=== PATIENT | male | born 1965 | race African-American/Black ===

== ENCOUNTER 2024-07-21 12:35 | Outpatient (REF) | payer OTHER, SELFPAY ==
[2024-07-21 14:13] LABS: MANUAL DIFF FLAG NO
[2024-07-21 14:28] LABS: Estimated Average Glucose 151 mg/dL; Hemoglobin A1C 196.6872 umol/L; Hemoglobin A1c % 6.9 % (<6.0); Total Hemoglobin (HGBA1C) 3764.7137 umol/L
[2024-07-21 14:31] LABS: Basophils Percent Auto 0.7 % (0-2); Eosinophils Absolute Auto 0.1 X10*3/uL (0.0-0.4); Eosinophils Percent Auto 2.1 % (0-4); Hematocrit 42.9 % (42.0-52.0); Hemoglobin 14.1 g/dl (14.0-18.0); Imm Gran Abs Auto 0.01 X10*3/uL (0.00-0.03); Imm Gran Pct Auto 0.2 % (0.0-0.4); Lymphocytes Absolute Auto 1.7 X10*3/uL (1.2-4.9); Lymphocytes Percent Auto 30.1 % (20-40); Mean Corpuscular HGB Conc 32.9 g/dl (31.0-36.0); Mean Corpuscular Hemoglobin 30.7 pg (27.0-33.0); Mean Corpuscular Volume 93.5 fL (80.0-98.0); Mean Platelet Volume 10.8 fL (9.4-12.4); Monocytes Absolute Auto 0.6 X10*3/uL (0.1-1.2); Monocytes Percent Auto 9.9 % (2-11); Neutrophils Absolute Auto 3.3 x10*3/uL (2.0-8.3); Platelet Count 228 X10*3/uL (160-400); Red Blood Count 4.59 X10*6/uL (4.60-5.80); Red Cell Distribution Width 16.8 % (11.0-16.0); White Blood Count 5.8 X10*3/uL (4.8-10.8)
[2024-07-21 14:48] LABS: Cholesterol 87 mg/dL (<200); HDL Cholesterol 29 mg/dL (>40); LDL Cholesterol Calculated 41 mg/dL (<100); Triglycerides 87 mg/dL (<150)
[2024-07-21 15:02] LABS: Thyroid Stimulating Hormone 3.43 uIU/mL (0.32-4.0)
== END 2024-07-21 12:36 | disposition home or self-care (01) ==
LOC: HO.WFDLDS 12:35
PROVIDERS: Visit Provider Nurse Practitioner Family
DX: F41.1 Generalized anxiety disorder (principal); Z13.1 Encounter for screening for diabetes mellitus
CPT/HCPCS: 36415; 80061; 83036; 84443; 85025

== ENCOUNTER 2024-08-01 14:30 | Inpatient (IN) | payer OTHER, SELFPAY ==
--- NOTE | ~2024-08-01 | XR_ITS ---
EXAMINATION: XR CHEST CLINICAL INFORMATION: SOB COMPARISON: None available. TECHNIQUE: 2 views of the chest were obtained. FINDINGS: The cardiac silhouette is enlarged. There is mild diffuse bronchial wall thickening. There are no areas of consolidation. There are no pleural effusions or pneumothoraces. The bones and soft tissues are unremarkable for the patient's age. XR/XR chest 2V IMPRESSION: Bronchial wall thickening may be infectious and/or inflammatory in etiology. Cardiomegaly. Electronically signed by: Corina Sam MD 08/01/2024 04:21 PM JAYSHREE WILLIS
--- NOTE | ~2024-08-01 | CT_ITS ---
EXAMINATION: CT ABDOMEN AND PELVIS WITH CONTRAST CLINICAL INFORMATION: Elevated bilirubin. Abdominal distention. Left-sided pain and tenderness. Question colitis. COMPARISON: None available. TECHNIQUE: Multidetector volumetric images were obtained from the superior aspect of the liver through the pubic symphysis following administration 85 mL of Omnipaque 350 intravenous contrast. Sagittal and coronal reformatted images were obtained on the technologist's workstation. Oral Contrast: No. This CT examination was performed using dose optimization techniques as appropriate, variously including the following: *Automated exposure control. *Adjustment of mA and/or kV according to patient size (this includes techniques or standardized protocols for targeted exams where dose is matched to indication/reason for exam; i.e. extremities or head). *Use of iterative reconstruction technique. DLP: 752 mGy-cm FINDINGS: LUNG BASES: Cardiomegaly and small pericardial effusion. LIVER, GALLBLADDER, AND BILIARY TREE: The liver is normal in size, shape, and attenuation. No focal hepatic lesion or biliary ductal dilatation is present. The gallbladder is unremarkable with no evidence of radiopaque gallstones, gallbladder wall thickening, or obvious pericholecystic inflammatory changes. PANCREAS: Unremarkable. SPLEEN: Atrophic. No parenchymal lesion. ADRENAL GLANDS: Unremarkable. KIDNEYS AND URETERS: The kidneys are normal in size, shape, and attenuation. No hydronephrosis, hydroureter, or calculi seen. No perinephric stranding. BLADDER: Unremarkable. GASTROINTESTINAL TRACT: No small or large bowel obstruction. No bowel wall thickening or inflammatory change. Unremarkable appendix. PERITONEAL CAVITY: Trace pelvic free fluid. No organized fluid collection or abscess formation. No intra-abdominal free air. ABDOMINAL WALL: No significant abdominal wall hernia. LYMPH NODES: No lymphadenopathy. VASCULAR: Unremarkable. PELVIC VISCERA: The prostate and seminal vesicles are unremarkable. OSSEOUS STRUCTURES: Unremarkable. CT/CT abdomen pelvis w IV con IMPRESSION: 1. No small or large bowel obstruction. No bowel wall thickening or inflammatory change. Unremarkable appendix. 2. Trace pelvic free fluid. No organized fluid collection or abscess formation. 3. Cardiomegaly and small pericardial effusion. Fleischner guidelines were followed. Electronically signed by: Augustin Velez MD 08/01/2024 08:43 PM [facility] [place]
--- NOTE | ~2024-08-01 | CT_ITS ---
EXAMINATION: CT CHEST ANGIOGRAPHY WITH IV CONTRAST CLINICAL INFORMATION: , hypoxia COMPARISON: None TECHNIQUE: Volumetric imaging was performed through the chest. Reformatted coronal and sagittal imaging was performed. 3-D MIP images performed at a dedicated separate workstation. This CT examination was performed using dose optimization techniques as appropriate, variously including the following: *Automated exposure control *Adjustment of mA and/or kV according to patient size (this includes techniques or standardized protocols for targeted exams where dose is matched to indication/reason for exam; i.e. extremities or head) *Use of iterative reconstruction technique CONTRAST: 85 ml of Omni 350 injected DLP: 752 FINDINGS: PULMONARY ARTERIES: Large central emboli, there are however nonocclusive small filling defects in tertiary branches of the pulmonary arteries bilaterally upper and lower lobes, suggesting a small emboli could be chronic. , These are peripherally located, Subsegmental pulmonary arteries, no CT evidence of cardiac strain septal bowing. LINES/TUBES: None LUNGS: Lung Parenchyma: Panlobular pulmonary emphysema. Lung Nodules:There are no significant lung nodules. AIRWAYS: Trachea and bronchi are normal. PLEURA: No pleural effusion or pneumothorax. MEDIASTINUM AND TASHA: The visualized thyroid gland is unremarkable. No mediastinal, hilar or axillary lymphadenopathy. There is no mediastinal mass. VESSELS: Ascending aorta normal in size, pulmonary artery on the right is dilated measure up to 3.1 cm, the left pulmonary artery is a 3 cm. this has been described in association with pulmonary hypertension. HEART AND PERICARDIUM: The heart is enlarged. There are no significant coronary calcifications. CHEST WALL, LOWER NECK, SURROUNDING SOFT TISSUES: Normal VISUALIZED ABDOMEN: Unremarkable BONES: The visualized bony thorax is within normal limits. CT/CT angio chest PE protocol IMPRESSION: 1. Positive PE. Although there are no Large central emboli, there are however small nonocclusive filling defects in tertiary branches of the pulmonary arteries bilaterally upper and lower lobes, suggesting a small emboli could be chronic. These are peripherally located, Subsegmental pulmonary arteries, no CT evidence of cardiac strain septal bowing. 2. Cardiomegaly. 3. Pulmonary emphysema. 4. No suspicious lung mass. 5. Dilated pulmonary arteries, this has been described in association with pulmonary hypertension. 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
--- NOTE | ~2024-08-01 | US_ITS ---
EXAMINATION: US TRIPLEX LOWER EXTREMITY, BILATERAL CLINICAL INFORMATION: Swelling hypoxia PTE COMPARISON: None available. TECHNIQUE: Color-flow triplex imaging with spectral analysis and compression Doppler were performed on the bilateral lower extremities. FINDINGS: Respiratory variation, normal compression and augmented flow are noted throughout the bilateral lower extremities. The visualized common femoral vein, superficial femoral vein, profunda femoral vein, popliteal vein and midcalf peroneal and posterior tibial venous segments show no evidence of deep venous thrombosis bilaterally. There is no Luna's cyst. US/US venous duplex LE BI IMPRESSION: No evidence of deep venous thrombosis involving the bilateral lower extremities. Electronically signed by: Wayne Bass MD 08/01/2024 11:02 PM JAYSHREE WILLIS
--- NOTE | 2024-08-01 14:57 | ED.SOB ---
HPI - SOB/Dyspnea General Chief Complaint: Dyspnea Stated Complaint: Diff Breathing Sent by PCP Time Seen by Provider: 08/01/24 17:13 Source: patient, RN notes reviewed and old records reviewed Mode of arrival: ambulatory Limitations: no limitations History of Present Illness ED Provider: Patricia SILVESTRE Narrative: 59-year-old male presents for evaluation of shortness of breath. Patient reports that he has been having shortness of breath with a cough for the last few weeks. He saw his primary doctor about 2 days ago and had his medications refilled which include losartan, torsemide, spironolactone, atorvastatin. He was also given a prescription for azithromycin and prednisone given his cough and shortness of breath especially with exertion The patient reports he quit smoking about 6 months ago He reports every morning he is nauseous and vomits which she believes related to ?mucus. ? He denies any abdominal pain, nausea or vomiting with the exception of the morning vomiting He denies any fevers, chills, recent travel. He does not believe that his legs are swollen today He reports that he was admitted to [facility] over the summer due to leg swelling. He does not believe he was diagnosed with heart failure but he does have an upcoming appointment with a population health coach He denies any chest pain Related Data Allergies Allergy/AdvReac Type Severity Reaction Status Date / Time No Known Allergies Allergy Verified 08/01/24 14:59 Review of Systems Constitutional: Constitutional: Denies body ache(s), Denies chills, Denies fever(s) and Denies headache(s) Eyes: Eyes: Denies blurry vision ENT: Denies vertigo, Denies dizziness and Denies headache(s) Cardiovascular: Cardiovascular: Denies chest pain, Reports dyspnea and Reports dyspnea on exertion Respiratory: Respiratory: Reports cough, Denies pain on inspiration, Denies pain with cough, Reports dyspnea and Reports dyspnea on exertion Gastrointestinal: Gastrointestinal: Denies abdominal pain, Reports nausea and Reports vomiting Musculoskeletal: Musculoskeletal: Denies back pain Integumentary/Breasts: Skin/Breast: Denies rash Neurologic: Denies vertigo, Denies dizziness and Denies headache(s) Psychiatric: Psychiatric: Denies anxiety PMFSH Social History Social History Smoked in Last 30 Days: Yes Use of substances other than those prescribed or required for medical reasons: No Advance Directives: No Advance Directives Information Provided: No Do you have a plan to hurt others: No Plan Physical Exam Vital Signs: Vital Signs: Last Vital Signs Temp 98.3 F 08/01/24 19:20 Pulse 89 08/01/24 19:20 Resp 24 H 08/01/24 19:20 BP 145/106 H 08/01/24 19:20 Pulse Ox 96 08/01/24 19:20 O2 Del Method Room Air 08/01/24 19:20 BMI result Body Mass Index 24.9 Const: General: healthy appearing, comfortable, no acute distress, alert and awake Nutritional Appearance: well nourished Orientation/consciousness: patient oriented x3 HEENT: Head: Yes normocephalic and Yes atraumatic Eyes: Eyelids: Yes eyelids normal Conjunctivae: conjunctivae normal Sclerae: sclerae normal Corneas: corneas normal Pupils: Equal, round and reactive pupils present EOM: EOMs intact bilaterally Neck: Neck: Yes full ROM Resp: Other: Somewhat diminished but otherwise clear to auscultation Effort & Inspection: normal respiratory effort, able to speak in complete sentences and not labored Cardio: Rate: regular rate Rhythm: regular rhythm GI: Other: Abdomen distended, but nontender no guarding Inspection: Yes distended Palpation (GI): Soft to palpation, not firm, nontender, no guarding and not rigid Skin: General skin exam: elasticity normal Neuro: General: patient oriented x3 Cranial nerves: Yes CN's II-XII intact bilaterally, Yes Equal, round and reactive pupils present and Yes Bilaterally intact EOM present Cognition (Neuro): normal cognition Course Course Course Narrative: This is an RME: Additional HPI, ROS, PE not included below will be deferred to primary provider. RME assessment and note performed by: Allison Zavala PA-C This is a [id number]-male who presents to the ER with complaints of shortness of breath x 1 week. Pt states that over the last week . Reports that he was told that my left ventricle was not pumping right . He is unsure what his medical history is. He just started on azithromycin. He is also on prednisone. He was a former smoker, quit 6 months ago. Plan: Labs, XR, viral swabs, further ER eval needed >received critical lactic of 2.9, advised charge nurse to bring pt back [facility] Reevaluation(s) Reevaluation #1: Patient's CT scan shows nonocclusive pulmonary embolism, no evidence of heart strain, the patient is still tachypneic, his tachycardia has improved. His oxygen saturation is about 90-92% at rest. I ordered a dose of Lovenox and will discuss with the hospitalist for admission Time: 21:10 Medications Administered Discontinued Medications Generic Name Dose Route Start Last Admin Trade Name Freq PRN Reason Stop Dose Admin Iohexol 100 ml 08/01/24 18:56 08/01/24 18:57 Iohexol 350 Mg/Ml 100 Ml Infus..Btl IV 08/01/24 18:57 85 ml ONCE ONE Administration Medical Decision Making Medical Decision Making MDM Narrative: 59-year-old male presents for evaluation of shortness of breath, cough. He was hypoxia 90% on arrival in tachycardic to 107. His BNP is almost 5000. His chest x-ray does not show any pleural effusions but does have an enlarged heart. Given the hypoxia with tachycardia and BNP 5000 with an unimpressive chest x-ray I will be a CT angiography to rule out PE. Additionally, the patient's abdomen is distended, his LFTs are elevated with a direct bilirubin of 1.6 and a total bili of 2.7. A CT scan of the abdomen pelvis was ordered to evaluate for possible enlarged liver/cirrhosis/pancreatic lesion. Differential Diagnosis Differential Diagnoses: The differential diagnosis associated with the presentation includes Bronchitis Pneumonia CHF Viral syndrome PE Liver cirrhosis Pancreatic mass Admission/Observation Consideration of admission/observation: Escalation of care including admission/observation considered Lab Data MDM Lab Attestation statement: I reviewed the patient's lab results. No leukocytosis or anemia. Normal platelet count. No electrolyte abnormalities. Patient has a mild elevation of creatinine to 1.46 but a normal GFR. Patient's glucose is elevated to 195, no evidence of DKA. The patient's BNP is almost 5000. 08/01/24 15:14 08/01/24 15:14 Labs: Lab Results 08/01/24 08/01/24 Range/Units 15:14 18:15 WBC 6.0 (4.8-10.8) X10*3/uL RBC 4.55 L (4.60-5.80) X10*6/uL Hgb 14.3 (14.0-18.0) g/dl Hct 42.3 (42.0-52.0) % MCV 93.0 (80.0-98.0) fL MCH 31.4 (27.0-33.0) pg MCHC 33.8 (31.0-36.0) g/dl RDW 16.9 H (11.0-16.0) % Plt Count 217 (160-400) X10*3/uL MPV 10.7 (9.4-12.4) fL Immature Gran % (Auto) 0.3 (0.0-0.4) % Neut % (Auto) 79.8 H (45-73) % Lymph % (Auto) 14.5 L (20-40) % [place] % (Auto) 5.2 (2-11) % Eos % (Auto) 0.0 (0-4) % Baso % (Auto) 0.2 (0-2) % Lymph # (Auto) 0.9 L (1.2-4.9) X10*3/uL [place] # (Auto) 0.3 (0.1-1.2) X10*3/uL Eos # (Auto) 0.0 (0.0-0.4) X10*3/uL Baso # (Auto) 0.0 (0.0-0.2) X10*3/uL Abs Immat Gran (auto) 0.02 (0.00-0.03) X10*3/uL Absolute Neuts (auto) 4.8 (2.0-8.3) x10*3/uL Absolute Nucleated RBC 0.000 (0.0-0.012) X10*3/uL Nucleated RBC % (auto) 0.0 (0.0-0.2) /100WBC PT 15.3 H (10.9-12.4) SEC INR 1.3 H (0.9-1.1) Sodium 141 (135-145) mmol/L Potassium 3.8 (3.3-5.1) mmol/L Chloride 103 (96-108) mmol/L Carbon Dioxide 23 (22-29) mmol/L Anion Gap 19 (12-20) BUN 13 (9-16) mg/dL Creatinine 1.46 H (0.5-1.4) mg/dL Estim Creat Clear Calc 63.0 Estimated GFR 50 Random Glucose 195 H (60-115) mg/dL Lactic Acid 2.9 H* (0.5-2.0) mmol/L Lactic Acid F/U @ 2Hr 1.7 (0.5-2.0) mmol/L Calcium 9.7 (8.4-10.2) mg/dL Magnesium 1.8 (1.6-2.6) mg/dL Total Bilirubin 2.7 H (0.0-1.0) mg/dL Direct Bilirubin 1.8 H (0.0-0.5) mg/dL AST 77 H (5-37) U/L ALT 67 H (0-40) U/L Alkaline Phosphatase 446 H (39-117) U/L Troponin I High Sens 14.9 (<3.5-35.0) ng/L B-Natriuretic Peptide 4966 H (<100) pg/mL Total Protein 7.7 (6.5-8.0) g/dL Albumin 4.1 (3.5-5.0) g/dL Influenza Type A (PCR) NEGATIVE (Negative) Influenza Type B (PCR) NEGATIVE (Negative) RSV RNA Qual (PCR) NEGATIVE (Negative) SARS-CoV-2 RNA (RT-PCR) NEGATIVE (Negative) Independent Interpretation I performed an independent interpretation of an: EKG and Plain X-Ray (no pleural effusions) Interpretation: Sinus tachycardia rate of [address] segment elevation [place] Radiology Impression Discussion of test interpretation with radiology: I have reviewed the radiologist's reading. Radiologist Impression: FINDINGS: The cardiac silhouette is enlarged. There is mild diffuse bronchial wall thickening. There are no areas of consolidation. There are no pleural effusions or pneumothoraces. The bones and soft tissues are unremarkable for the patient's age. XR/XR chest 2V IMPRESSION: Bronchial wall thickening may be infectious and/or inflammatory in etiology. Cardiomegaly. Electronically signed by: Corina Sam MD 08/01/2024 04:21 PM [facility] [place] FINDINGS: PULMONARY ARTERIES: Large central emboli, there are however nonocclusive small filling defects in tertiary branches of the pulmonary arteries bilaterally upper and lower lobes, suggesting a small emboli could be chronic. , These are peripherally located, Subsegmental pulmonary arteries, no CT evidence of cardiac strain septal bowing. LINES/TUBES: None LUNGS: Lung Parenchyma: Panlobular pulmonary emphysema. Lung Nodules:There are no significant lung nodules. AIRWAYS: Trachea and bronchi are normal. PLEURA: No pleural effusion or pneumothorax. MEDIASTINUM AND TASHA: The visualized thyroid gland is unremarkable. No mediastinal, hilar or axillary lymphadenopathy. There is no mediastinal mass. VESSELS: Ascending aorta normal in size, pulmonary artery on the right is dilated measure up to 3.1 cm, the left pulmonary artery is a 3 cm. this has been described in association with pulmonary hypertension. HEART AND PERICARDIUM: The heart is enlarged. There are no significant coronary calcifications. CHEST WALL, LOWER NECK, SURROUNDING SOFT TISSUES: Normal VISUALIZED ABDOMEN: Unremarkable BONES: The visualized bony thorax is within normal limits. CT/CT angio chest PE protocol IMPRESSION: 1. Positive PE. Although there are no Large central emboli, there are however small nonocclusive filling defects in tertiary branches of the pulmonary arteries bilaterally upper and lower lobes, suggesting a small emboli could be chronic. These are peripherally located, Subsegmental pulmonary arteries, no CT evidence of cardiac strain septal bowing. 2. Cardiomegaly. 3. Pulmonary emphysema. 4. No suspicious lung mass. 5. Dilated pulmonary arteries, this has been described in association with pulmonary hypertension. 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
[2024-08-01 14:58] VITALS: BP 136/86; PULSE 107; RESP 18; TEMP 36.6; O2SAT 90; BMI 24.9
--- NOTE | 2024-08-01 15:00 | ECG_ITS ---
Test Reason : DYSPNEA Blood Pressure : / mmHG Vent. Rate : 105 BPM Atrial Rate : 105 BPM P-R Int : 190 ms QRS Dur : 100 ms QT Int : 354 ms P-R-T Axes : 022 -28 102 degrees QTc Int : 467 ms Sinus tachycardia Possible Left atrial enlargement Left ventricular hypertrophy ( Sokolow-Henao , Ace product ) with strain pattern Abnormal ECG No previous ECGs available Referred By: Allison Zavala Electronically Signed By:REJI GARCIA
[2024-08-01 15:30] LABS: MANUAL DIFF FLAG NO
[2024-08-01 15:32] LABS: Basophils Percent Auto 0.2 % (0-2); Hematocrit 42.3 % (42.0-52.0); Hemoglobin 14.3 g/dl (14.0-18.0); Imm Gran Abs Auto 0.02 X10*3/uL (0.00-0.03); Imm Gran Pct Auto 0.3 % (0.0-0.4); Lymphocytes Absolute Auto 0.9 X10*3/uL (1.2-4.9); Lymphocytes Percent Auto 14.5 % (20-40); Mean Corpuscular HGB Conc 33.8 g/dl (31.0-36.0); Mean Corpuscular Hemoglobin 31.4 pg (27.0-33.0); Mean Platelet Volume 10.7 fL (9.4-12.4); Monocytes Absolute Auto 0.3 X10*3/uL (0.1-1.2); Monocytes Percent Auto 5.2 % (2-11); Neutrophils Absolute Auto 4.8 x10*3/uL (2.0-8.3); Neutrophils Percent Auto 79.8 % (45-73); Platelet Count 217 X10*3/uL (160-400); Red Blood Count 4.55 X10*6/uL (4.60-5.80); Red Cell Distribution Width 16.9 % (11.0-16.0)
[2024-08-01 15:41] LABS: INTERNATIONAL NORM RATIO 1.3 (0.9-1.1); Prothrombin Time 15.3 SEC (10.9-12.4)
[2024-08-01 15:47] LABS: Lactic Acid 2.9 mmol/L (0.5-2.0)
[2024-08-01 15:53] LABS: B Type Natriuretic Peptide 4966 pg/mL (<100)
[2024-08-01 15:54] LABS: Albumin Level 4.1 g/dL (3.5-5.0); Alkaline Phosphatase 446 U/L (39-117); Anion Gap 19 (12-20); Bilirubin Direct 1.8 mg/dL (0.0-0.5); Bilirubin Total 2.7 mg/dL (0.0-1.0); Blood Urea Nitrogen 13 mg/dL (9-16); Calcium 9.7 mg/dL (8.4-10.2); Carbon Dioxide 23 mmol/L (22-29); Chloride 103 mmol/L (96-108); Estimated Glomerular Filt Rate 50; Glucose Random 195 mg/dL (60-115); Magnesium 1.8 mg/dL (1.6-2.6); Potassium 3.8 mmol/L (3.3-5.1); Sodium 141 mmol/L (135-145); Total Protein 7.7 g/dL (6.5-8.0); Troponin-I High Sensitivity 14.9 ng/L (<3.5-35.0)
[2024-08-01 16:09] LABS: Influenza A PCR NEGATIVE (Negative); Influenza B PCR NEGATIVE (Negative); Resp Syncy Virus RNA Qual PCR NEGATIVE (Negative); SARS COV2 PCR INHOUSE NEGATIVE (Negative)
[2024-08-01 16:28] LABS: Alanine Aminotransferase 67 U/L (0-40); Aspartate Amino Transferase 77 U/L (5-37)
[2024-08-01 17:23] VITALS: BP 155/112; PULSE 102; RESP 20; TEMP 36.6; O2SAT 94
[2024-08-01 17:28] LABS: Reflex Lactate? Lactic Acid Added
--- NOTE | 2024-08-01 17:30 | PC.NURSE ---
Pt is slightly SOB at rest in bed, LS dim but clear. NSR on monitor. speaking full sentences. BLE plu2 pitting edema.. started spironolactone 2 days ago. Sx have been getting worse over 2 weeks.
[2024-08-01 18:43] LABS: ~Lactic Acid-LAB USE ONLY 1.7 mmol/L (0.5-2.0)
[2024-08-01] MEDS: iohexoL 350 MG/ML 100 ML INFUS..BTL IV (18:57)
[2024-08-01 19:20] VITALS: BP 145/106; PULSE 89; RESP 24; TEMP 36.8; O2SAT 96
--- NOTE | 2024-08-01 19:40 | MHC.EDTECH ---
Addendum entered by Coco Patel 08/01/24 20:01: Per provider pt doesn't need to have second set of blood cultures drawn Original Note: This tech took over care of patient at 1900,rounded and introduced self to pt,vitals taken,BP is elevated RN made aware,pt is resting quietly,watching TV,call santiago in reach
--- NOTE | 2024-08-01 21:12 | MHC.EDTECH ---
Patient was given a tuna sandwich w/cheese sticks,and 2 cups of apple juice
--- NOTE | 2024-08-01 21:58 | PHA.MEDREC ---
Addendum entered by Carmen Drew RPh 08/01/24 22:04: Med rec reviewed by [facility]. Original Note: Pharmacy Consult ? Medication Reconciliation Pharmacy has completed the medication reconciliation. Spoke to patient to confirm med list.
[2024-08-01 22:00] VITALS: BP 142/104; PULSE 97; RESP 28; TEMP 36.8; O2SAT 95
--- NOTE | 2024-08-01 22:12 | P.HPHOSP_ITS ---
History of Present Illness Date of Service: 08/01/24 Chief Complaint: Shortness of breaths 59-year-old male with history of hypertension, hyperlipidemi, HFrEF EF 10-15% ([place] 20[place] [facility] CKD3 he was last admitted to [facility] [place] for management of heart failure (DC meds--Losartan, Torsemide, metoprolol, Aldactone and dapagliflozin). He presented to the ED with shortness of breath. He has been having shortness of breath for weeks worse with exertion and has had increasing leg edema, PND and othropnea. He has been been prescribed torsemide and aldactone for the lege edema and Prednisone and Azithromycin for cough and bronchitis. ED work up: CXR bronchial wall thickening, cardiomegally. CTA chest: PE, cardiomegally, emphasyma and pulmonary HTN. BNP: 4966, Creatine 1.46 no prior. Flu/RSV/covid negative. ED treatment: Lovenox 90 mg Review of Systems 2 Review of Systems: Gen: no fever Resp: no sob, no cough CV: no chest pain, + MCCOY, + leg edema GI: No n/v, no abd pain Neuro: No confusion Yes all other systems are reviewed and are negative [facility] Family History (Updated 08/02/24 @ 10:15 by Carl Farias MD) Mother Heart problem Social History Household Members: None Housing: Other Do you presently have visiting nurse or other home services: No Patient Tobacco Use Status: Former Tobacco user Tobacco use type: Cigarette e-Cigarette/Vaping Use: Never Used Second Hand Smoke Exposure: No service: No Meds Allergies Allergy/AdvReac Type Severity Reaction Status Date / Time No Known Allergies Allergy Verified 08/01/24 14:59 Active Medications: Current Medications Aspirin (Aspirin Enteric Coated 81 Mg Tablet.) 81 mg PO DAILY RONAL Atorvastatin Calcium (Atorvastatin Calcium 20 Mg Tablet) 20 mg PO DAILY RONAL Metoprolol Succinate (Metoprolol Succinate Er 25 Mg Tab.Er.24h) 25 mg PO DAILY RONAL; Protocol Spironolactone (Spironolactone 25 Mg Tablet) 25 mg PO DAILY RONAL; Protocol Home Medications ?Medication ?Instructions ?Recorded ?Confirmed ?Last Taken ?Type aspirin 81 mg tablet,delayed 162 mg PO DAILY 08/01/24 08/01/24 08/01/24 History release atorvastatin 20 mg tablet 20 mg PO DAILY 08/01/24 08/01/24 08/01/24 09:00 History azithromycin 250 mg tablet 250 mg PO DIRECTED 08/01/24 08/01/24 08/01/24 09:00 History losartan 50 mg tablet 50 mg PO BID 08/01/24 08/01/24 08/01/24 09:00 History metoprolol succinate 25 mg 25 mg PO DAILY 08/01/24 08/01/24 08/01/24 09:00 History tablet,extended release 24 hr spironolactone 25 mg tablet 25 mg PO DAILY 08/01/24 08/01/24 08/01/24 09:00 History torsemide 20 mg tablet 20 mg PO DAILY 08/01/24 08/01/24 08/01/24 09:00 History Physical Exam 2 Vital Signs and Narrative: Vital Signs: Last Vital Signs Temp 98.3 F 08/01/24 19:20 Pulse 89 08/01/24 19:20 Resp 24 H 08/01/24 19:20 BP 145/106 H 08/01/24 19:20 Pulse Ox 96 08/01/24 19:20 O2 Del Method Room Air 08/01/24 19:20 BMI result Body Mass Index 24.9 Const: Other: General: AO X 3, no acute distress Resp: rales at bases, no accessor mucle use CVS: S1,S2,RRR, 2+ leg edema , right leg is tensely swollen GI: +BS, NT, no distention Skin: No rash Neuro: motor grossly intact, cn 2-12 intact Psych: appropriate affect Results Labs 08/02/24 04:59 08/03/24 06:37 Labs: Laboratory Results - last 24 hr 08/01/24 08/01/24 15:14 18:15 MCV 93.0 MCH 31.4 MCHC 33.8 RDW 16.9 H Plt Count 217 MPV 10.7 Immature Gran % (Auto) 0.3 Neut % (Auto) 79.8 H Lymph % (Auto) 14.5 L [place] % (Auto) 5.2 Eos % (Auto) 0.0 Baso % (Auto) 0.2 Lymph # (Auto) 0.9 L [place] # (Auto) 0.3 Eos # (Auto) 0.0 Baso # (Auto) 0.0 Abs Immat Gran (auto) 0.02 Absolute Neuts (auto) 4.8 Absolute Nucleated RBC 0.000 Nucleated RBC % (auto) 0.0 PT 15.3 H INR 1.3 H Anion Gap 19 Estim Creat Clear Calc 63.0 Estimated GFR 50 Random Glucose 195 H Lactic Acid 2.9 H* Lactic Acid F/U @ 2Hr 1.7 Calcium 9.7 Magnesium 1.8 Total Bilirubin 2.7 H Direct Bilirubin 1.8 H AST 77 H ALT 67 H Alkaline Phosphatase 446 H Troponin I High Sens 14.9 B-Natriuretic Peptide 4966 H Total Protein 7.7 Albumin 4.1 Influenza Type A (PCR) NEGATIVE Influenza Type B (PCR) NEGATIVE RSV RNA Qual (PCR) NEGATIVE SARS-CoV-2 RNA (RT-PCR) NEGATIVE Imaging Radiologist's Impressions: Impressions Chest X-Ray 08/01/24 15:30 IMPRESSION: Bronchial wall thickening may be infectious and/or inflammatory in etiology. Cardiomegaly. Electronically signed by: Corina Sam MD 08/01/2024 04:21 PM EST RP Abdomen/Pelvis CT 08/01/24 17:43 IMPRESSION: 1. No small or large bowel obstruction. No bowel wall thickening or inflammatory change. Unremarkable appendix. 2. Trace pelvic free fluid. No organized fluid collection or abscess formation. 3. Cardiomegaly and small pericardial effusion. Fleischner guidelines were followed. Electronically signed by: Augustin Velez MD 08/01/2024 08:43 PM EST RP Chest CTA 08/01/24 18:50 IMPRESSION: 1. Positive PE. Although there are no Large central emboli, there are however small nonocclusive filling defects in tertiary branches of the pulmonary arteries bilaterally upper and lower lobes, suggesting a small emboli could be chronic. These are peripherally located, Subsegmental pulmonary arteries, no CT evidence of cardiac strain septal bowing. 2. Cardiomegaly. 3. Pulmonary emphysema. 4. No suspicious lung mass. 5. Dilated pulmonary arteries, this has been described in association with pulmonary hypertension. (Referring physician staff is being called, by physician staff assistance, to be alerted of the above critical findings and recommendations.)EM 08/01/2024 7:38 PM PUSHER OPERATOR Electronically signed by: Liya Putnam MD 08/01/2024 08:38 PM EST RP Assessment and Plan (1) Dyspnea on exertion: Status: Resolved (2) Pulmonary embolism: Status: Resolved Plan 59/m with HTN, HLD here with MCCOY and found to have PE, heart failure, renal failure and transaminitits Dyspnea likely d/t PE, heart failure and pulm HTN -treat underlying issues Acute on chronic HFrEF, on torsemide, aldactone and losartan at home -echo to further assess -cardiology eval -IV Lasix -Monitor I/O, weight and BMP Pulmonary embolism -Lovenox in ED -Eliquis starting tomorrow -US of both legs Transaminitis--chronic and staple (per record at [facility] [place]) Possible CARLOS EDUARDO on CKD--last creatine [place] [facility] on [place] 18 was 1.53 -monitor cr with diuretics Acute lactic acisosis--not due to sepsis, -resolved HTN -resume metoprolol -hold losartan in light of renal failure HLD--hld Lipitor d/t elevated LFTs Elevated glucose--195, no h/o dm -check hgb A1c DVT prophylaxis--see PE above Full code Admission for at least 2 midnights for management of heart failure with IV diuretics, PE Quality Stroke Does the patient have a stroke diagnosis?: No VTE Prior VTE?: No VTE Risk Level:: Medical - moderate - high VTE Device Contraindication: Treatment Not Indicated VTE Drug Contraindication: N/A - Med Ordered
[2024-08-01 22:17] VITALS: BP 143/104; PULSE 98; RESP 26; O2SAT 95
--- NOTE | 2024-08-01 22:22 | MHC.EDTECH ---
Rounds and vitals completed,BP is elevated RN aware
--- NOTE | 2024-08-01 22:26 | PC.NURSE ---
pt getting ultrasound of leg. Will administer medication when complete
[2024-08-01] MEDS: Enoxaparin Sodium 100 MG/ML SYRINGE 90 MG SUBCUT (22:46)
--- NOTE | 2024-08-01 23:00 | MHC.EDTECH ---
Belongings list completed,copy placed in chart,pt placed upper denture in labeled denture cup at bedside
--- NOTE | 2024-08-01 23:02 | PC.NURSE ---
Addendum entered by Bessie Waller RN 08/02/24 04:00: CTA +PE, Venous doppler u/s negative. Pt given subcu lovenox. Original Note: Pt 59 year old male, recently diagnosed with CHF and started on Spironolactone 2 dys ago. Pt presents today with 2 weeks sob and pitting edema/pain. Lactic and BNP elevated, getting IV lasix BID. SPO96% on ra. Pt alert and oriented X4, SR on tele, MCCOY. Venous doppler u/s pending results. Independent at baseline. #20 IV L-AC. Pt is daily 1 shot a day drinker
[2024-08-01 23:05] LABS: Thyroid Stimulating Hormone 1.69 uIU/mL (0.32-4.0)
[2024-08-02] VITALS (13 sets, daily range): BP systolic 107–137; BP diastolic 70–96; PULSE 82–101; RESP 16–22; TEMP 35.8–37.2; O2SAT 87–100; BMI 24.1
[2024-08-02] MEDS: Furosemide 40 MG/4 ML VIAL IVPUSH ×3 (00:02→17:42)
[2024-08-02] MEDS: 0.9 % Sodium Chloride Flush 3 ML SYRINGE IVFLUSH ×4 (00:04→23:38)
--- NOTE | 2024-08-02 01:22 | MHC.EDTECH ---
Upon entry to room pt sats were at 87% on room air,RN was made aware,chrg RN at bedside and placed pt on 2L VNC,pt sats are 94% at this time.
--- NOTE | 2024-08-02 01:26 | PC.NURSE ---
Tech reprted to t/w that pt SPO2 dropped to 87%, placed on 2LNC, spo2 improved to 94%, aware.
[2024-08-02 05:07] LABS: Hematocrit 42.3 % (42.0-52.0); Hemoglobin 14.4 g/dl (14.0-18.0); Mean Corpuscular Hemoglobin 31.4 pg (27.0-33.0); Mean Corpuscular Volume 92.2 fL (80.0-98.0); Mean Platelet Volume 10.2 fL (9.4-12.4); Platelet Count 222 X10*3/uL (160-400); Red Blood Count 4.59 X10*6/uL (4.60-5.80); Red Cell Distribution Width 16.6 % (11.0-16.0); White Blood Count 7.2 X10*3/uL (4.8-10.8)
[2024-08-02 05:20] LABS: Anion Gap 13 (12-20); Blood Urea Nitrogen 17 mg/dL (9-16); Calcium 9.1 mg/dL (8.4-10.2); Carbon Dioxide 26 mmol/L (22-29); Chloride 103 mmol/L (96-108); Creatinine Clr Calc Pharmacy 65.7; Estimated Glomerular Filt Rate 52; Glucose Random 129 mg/dL (60-115); Potassium 3.8 mmol/L (3.3-5.1); Sodium 138 mmol/L (135-145)
[2024-08-02 06:59] LABS: Estimated Average Glucose 148 mg/dL; Hemoglobin A1C 186.3576 umol/L; Hemoglobin A1c % 6.8 % (<6.0); Total Hemoglobin (HGBA1C) 3645.9023 umol/L
[2024-08-02] MEDS: Spironolactone 25 MG TABLET PO (08:04)
[2024-08-02] MEDS: Apixaban 5 MG TABLET 10 MG PO ×2 (08:05→20:29)
[2024-08-02] MEDS: Metoprolol Succinate ER 25 MG TAB.ER.24H PO (08:05)
[2024-08-02] MEDS: Aspirin Enteric Coated 81 MG TABLET.DR PO (08:06)
[2024-08-02] MEDS: Docusate Sodium 100 MG CAPSULE PO (08:06)
--- NOTE | 2024-08-02 08:12 | PC.NURSE ---
Pt is alert and oriented. Denies pain. LS clear throughout. No diff breathing or SOB. Pt remains on 2lpm via feliciano sat 96%. NSR on tele. Pt ambulatory to bathroom, urinal provided for better I&O assessment although pt does report voiding a lot. AM meds given. No lower ext swelling noted. Skin normal for ethnicity. VSS. Eating breakfast at this time
--- NOTE | 2024-08-02 10:12 | PM.CNCAR ---
History of Present Illness History of Present Illness Date of Service: 08/02/24 Chief complaint: Acute heart failure,PE Narrative: This is a cardiology consultation regarding congestive heart failure. Patient seems somewhat noncompliant and with little or no insight. Has not had any medical care since approximately February or so of this year. Per notes, seems like he was admitted to [facility] around that time and got diagnosed with congestive heart failure. Per H and P, LVEF was 10-15%, but patient does not seem to be aware of this. He seems surprised when I mentioned this. Otherwise, it seems that he has been having shortness of breath that has been worsening and that led to the current hospitalization. In this context, he was diagnosed with pulmonary embolism as well. We are asked to see him. Patient states he used to be smoker in the past but not recently. Has used marijuana but no other drugs. 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 Review of Systems Review of Systems: Yes all other systems are reviewed and are negative Constitutional: Constitutional: Reports as per HPI and Reports no additional constitutional complaints Eyes: Eyes: Reports as per HPI and Denies no additional eye complaints ENT: Denies system reviewed and no additional complaints, except as documented and Reports as per HPI Cardiovascular: Cardiovascular: Reports as per HPI, Reports no additional cardiovascular complaints, Denies acrocyanosis, Denies cool extremities, Denies chest pain, Denies leg edema, Denies lightheadedness, Denies palpitations and Reports dyspnea Respiratory: Respiratory: Reports as per HPI, Denies no additional respiratory complaints and Reports dyspnea Gastrointestinal: Gastrointestinal: Reports as per HPI and Denies no additional gastrointestinal complaints Genitourinary: Genitourinary: Reports no additional male genitourinary complaints and Reports as per HPI Musculoskeletal: Musculoskeletal: Reports no additional musculoskeletal complaints and Reports as per HPI Integumentary/Breasts: Skin/Breast: Reports system reviewed and no additional complaints, except as docu Neurologic: Reports system reviewed and no additional complaints, except as documented and Reports as per HPI Psychiatric: Psychiatric: Reports no additional psychiatric complaints and Reports as per HPI Endocrine: Endocrine: Reports no additional endocrine complaints, Reports as per HPI and Denies palpitations Hematologic/Lymphatic: Hematologic/Lymphatic: Reports no additional hematologic/lymphatic complaints and Reports as per HPI Allergic/Immunologic: Allergic/Immunologic: Reports no additional allergic/immunologic complaints and Reports as per HPI PMFSH Family History Family History (Updated 08/02/24 @ 10:15 by Carl Farias MD) Mother Heart problem Social History Social History Patient Tobacco Use Status: Never used Tobacco Smoked in Last 30 Days: Yes Use of substances other than those prescribed or required for medical reasons: No Advance Directives: No Advance Directives Information Provided: No Do you have a plan to hurt others: No Plan Nutrition Risks: No Nutritional Risk Meds Allergies Allergy/AdvReac Type Severity Reaction Status Date / Time No Known Allergies Allergy Verified 08/01/24 14:59 Active Medications: Current Medications Acetaminophen (Acetaminophen 325 Mg Tablet) 650 mg PO Q6H PRN PRN Reason: Pain, Mild (Pain Scale 1-3), fever or headache Apixaban (Apixaban 5 Mg Tablet) 10 mg PO BID [facility] Stop: 08/08/24 21:01 Last Admin: 08/02/24 08:05 Dose: 10 mg Aspirin (Aspirin Enteric Coated 81 Mg Tablet.Dr) 81 mg PO DAILY [facility] Last Admin: 08/02/24 08:06 Dose: 81 mg Calcium Carbonate (Calcium Carbonate 750 Mg Tab.Chew) 750 mg PO Q4H PRN PRN Reason: Heartburn Docusate Sodium (Docusate Sodium 100 Mg Capsule) 100 mg PO BID [facility] Last Admin: 08/02/24 08:06 Dose: 100 mg Furosemide (Furosemide 40 Mg/4 Ml Vial) 40 mg IVPUSH BID@0900,1800 [facility]; Protocol Last Admin: 08/02/24 08:04 Dose: 40 mg Magnesium Hydroxide (Milk Of Magnesia 30 Ml Oral.Susp) 30 ml PO DAILY PRN PRN Reason: Constipation Melatonin (Melatonin 3 Mg Tablet) 6 mg PO BEDTIME PRN PRN Reason: Insomnia Metoprolol Succinate (Metoprolol Succinate Er 25 Mg Tab.Er.24h) 25 mg PO DAILY [facility]; Protocol Last Admin: 08/02/24 08:05 Dose: 25 mg Ondansetron HCl (Ondansetron Hcl 4 Mg/2 Ml Vial) 4 mg IVPUSH Q8H PRN PRN Reason: Nausea and Vomiting Polyethylene Glycol (Polyethylene Glycol 3350 17 Gm Powd.Pack) 17 gm PO DAILY PRN PRN Reason: Constipation Sodium Chloride (0.9 % Sodium Chloride Flush 3 Ml Syringe) 3 ml IVFLUSH QSHIFT [facility] Last Admin: 08/02/24 08:06 Dose: 3 ml Spironolactone (Spironolactone 25 Mg Tablet) 25 mg PO DAILY [facility]; Protocol Last Admin: 08/02/24 08:04 Dose: 25 mg Home Medications ?Medication ?Instructions ?Recorded ?Confirmed ?Last Taken ?Type aspirin 81 mg tablet,delayed 162 mg PO DAILY 08/01/24 08/01/24 08/01/24 History release atorvastatin 20 mg tablet 20 mg PO DAILY 08/01/24 08/01/24 08/01/24 09:00 History azithromycin 250 mg tablet 250 mg PO DIRECTED 08/01/24 08/01/24 08/01/24 09:00 History losartan 50 mg tablet 50 mg PO BID 08/01/24 08/01/24 08/01/24 09:00 History metoprolol succinate 25 mg 25 mg PO DAILY 08/01/24 08/01/24 08/01/24 09:00 History tablet,extended release 24 hr prednisone 20 mg tablet 20 mg PO BID 08/01/24 08/01/24 08/01/24 09:00 History spironolactone 25 mg tablet 25 mg PO DAILY 08/01/24 08/01/24 08/01/24 09:00 History torsemide 20 mg tablet 20 mg PO DAILY 08/01/24 08/01/24 08/01/24 09:00 History Physical Exam Vital Signs: Vital Signs: Last Vital Signs Temp 97.5 F 08/02/24 04:05 Pulse 93 08/02/24 08:05 Resp 18 08/02/24 08:03 BP 128/94 H 08/02/24 08:05 Pulse Ox 97 08/02/24 08:03 O2 Del Method Nasal Cannula 08/02/24 08:03 O2 Flow Rate 2 08/02/24 08:03 BMI result Body Mass Index 24.9 Const: General: comfortable and no acute distress Orientation/consciousness: patient oriented x3 HEENT: Other: Unremarkable Head: Yes normal to inspection Neck: Neck: Yes normal visual inspection Chest: Chest palpation & inspection: normal inspection of the chest Resp: Other: Few basal crackles Cardio: Palpation: normal PMI Heart sounds: S1 normal heart sound present, S2 normal heart sound present, no gallops, no murmurs and no rubs GI: Palpation (GI): Soft to palpation Back/Spine/Pelvis: Other: unremarkable Skin: General skin exam: no rashes or lesions noted Neuro: General: patient oriented x3 Extrem: General: Yes normal to inspection Psych: Mental Status: mental status grossly normal Objective Labs and Meds 08/02/24 04:59 08/02/24 04:59 Lab results: Laboratory Results - last 24 hr 08/01/24 08/01/24 08/02/24 15:14 18:15 04:59 WBC 6.0 7.2 RBC 4.55 L 4.59 L Hgb 14.3 14.4 Hct 42.3 42.3 MCV 93.0 92.2 MCH 31.4 31.4 MCHC 33.8 34.0 RDW 16.9 H 16.6 H Plt Count 217 222 MPV 10.7 10.2 Immature Gran % (Auto) 0.3 Neut % (Auto) 79.8 H Lymph % (Auto) 14.5 L [place] % (Auto) 5.2 Eos % (Auto) 0.0 Baso % (Auto) 0.2 Lymph # (Auto) 0.9 L [place] # (Auto) 0.3 Eos # (Auto) 0.0 Baso # (Auto) 0.0 Abs Immat Gran (auto) 0.02 Absolute Neuts (auto) 4.8 Absolute Nucleated RBC 0.000 0.000 Nucleated RBC % (auto) 0.0 0.0 PT 15.3 H INR 1.3 H Sodium 141 138 Potassium 3.8 3.8 Chloride 103 103 Carbon Dioxide 23 26 Anion Gap 19 13 BUN 13 17 H Creatinine 1.46 H 1.40 Estim Creat Clear Calc 63.0 65.7 Estimated GFR 50 52 Random Glucose 195 H 129 H Estimat Average Glucose 148 Hemoglobin A1c % 6.8 H Lactic Acid 2.9 H* Lactic Acid F/U @ 2Hr 1.7 Calcium 9.7 9.1 D Magnesium 1.8 Total Bilirubin 2.7 H Direct Bilirubin 1.8 H AST 77 H ALT 67 H Alkaline Phosphatase 446 H Troponin I High Sens 14.9 B-Natriuretic Peptide 4966 H Total Protein 7.7 Albumin 4.1 TSH 1.69 Influenza Type A (PCR) NEGATIVE Influenza Type B (PCR) NEGATIVE RSV RNA Qual (PCR) NEGATIVE SARS-CoV-2 RNA (RT-PCR) NEGATIVE ECG Interpretation: EKG with underlying sinus tachycardia at 01:05/Min; possible left atrial enlargement; left ventricular hypertrophy with strain pattern. Imaging Radiologist's impression: Impressions Venous Duplex 08/01/24 10:00 IMPRESSION: No evidence of deep venous thrombosis involving the bilateral lower extremities. Electronically signed by: Wayne Bass MD 08/01/2024 11:02 PM EST RP Chest X-Ray 08/01/24 15:30 IMPRESSION: Bronchial wall thickening may be infectious and/or inflammatory in etiology. Cardiomegaly. Electronically signed by: Corina Sam MD 08/01/2024 04:21 PM EST RP Abdomen/Pelvis CT 08/01/24 17:43 IMPRESSION: 1. No small or large bowel obstruction. No bowel wall thickening or inflammatory change. Unremarkable appendix. 2. Trace pelvic free fluid. No organized fluid collection or abscess formation. 3. Cardiomegaly and small pericardial effusion. Fleischner guidelines were followed. Electronically signed by: Augustin Velez MD 08/01/2024 08:43 PM EST RP Chest CTA 08/01/24 18:50 IMPRESSION: 1. Positive PE. Although there are no Large central emboli, there are however small nonocclusive filling defects in tertiary branches of the pulmonary arteries bilaterally upper and lower lobes, suggesting a small emboli could be chronic. These are peripherally located, Subsegmental pulmonary arteries, no CT evidence of cardiac strain septal bowing. 2. Cardiomegaly. 3. Pulmonary emphysema. 4. No suspicious lung mass. 5. Dilated pulmonary arteries, this has been described in association with pulmonary hypertension. 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 Currently, possibly acute on chronic heart failure which could have been made worse because of pulmonary embolism. LFTs could be going high because of right heart dysfunction. Cardiac BNP is high but we do not have any baseline to compare with. Recommend diuretics. Optimize medical regimen including beta-blockers/ARB. Suspect lot of noncompliance as he is not really aware of anything seems to be surprised by his cardiac history. Most likely, he probably has uncontrolled hypertension for a long time which led to cardiomyopathy. Unknown coronary status. Discussed with Dr. Keene. Procedures Date of Service Date of Service: 08/02/24
--- NOTE | 2024-08-02 14:49 | P.PNIM_ITS ---
Subjective Subjective Date of Service: 08/02/24 Interval History: seen and evaluated this morning feels little better still on O2 supplement No fever or chills no other overnight events Review of Systems Review of Systems: Yes all other systems are reviewed and are negative Physical Exam 2 Vital Signs: Vital Signs: Last Vital Signs Temp 97.5 F 08/02/24 04:05 Pulse 95 08/02/24 14:04 Resp 16 08/02/24 14:04 BP 125/92 H 08/02/24 14:04 Pulse Ox 97 08/02/24 14:04 O2 Del Method Nasal Cannula 08/02/24 14:04 O2 Flow Rate 2.5 08/02/24 14:04 BMI result Body Mass Index 24.9 Const: Other: Constitutional : Awake, interactive, not in distress Neck : Normal inspection, Supple Cardiovascular : RRR, no JVP, +1 bilateral lower extremity edema Respiratory : good bilateral air entry, fine basal crackles Gastrointestinal: soft, lax, Normal bowel sounds, Non tender Skin : Warm, Dry Neurological : Alert & oriented x3, No focal deficit Objective Data Active Medications Acetaminophen (Acetaminophen 325 Mg Tablet) 650 mg PO Q6H PRN PRN Reason: Pain, Mild (Pain Scale 1-3), fever or headache Apixaban (Apixaban 5 Mg Tablet) 10 mg PO BID [facility] Stop: 08/08/24 21:01 Last Admin: 08/02/24 08:05 Dose: 10 mg Documented By: DAYNA Aspirin (Aspirin Enteric Coated 81 Mg Tablet.Dr) 81 mg PO DAILY [facility] Last Admin: 08/02/24 08:06 Dose: 81 mg Documented By: DAYNA Calcium Carbonate (Calcium Carbonate 750 Mg Tab.Chew) 750 mg PO Q4H PRN PRN Reason: Heartburn Docusate Sodium (Docusate Sodium 100 Mg Capsule) 100 mg PO BID [facility] Last Admin: 08/02/24 08:06 Dose: 100 mg Documented By: DAYNA Furosemide (Furosemide 40 Mg/4 Ml Vial) 40 mg IVPUSH BID@0900,1800 [facility]; Protocol Last Admin: 08/02/24 08:04 Dose: 40 mg Documented By: DAYNA Losartan Potassium (Losartan Potassium 25 Mg Tablet) 25 mg PO BID [facility]; Protocol Magnesium Hydroxide (Milk Of Magnesia 30 Ml Oral.Susp) 30 ml PO DAILY PRN PRN Reason: Constipation Melatonin (Melatonin 3 Mg Tablet) 6 mg PO BEDTIME PRN PRN Reason: Insomnia Metoprolol Succinate (Metoprolol Succinate Er 25 Mg Tab.Er.24h) 25 mg PO DAILY [facility]; Protocol Last Admin: 08/02/24 08:05 Dose: 25 mg Documented By: DAYNA Ondansetron HCl (Ondansetron Hcl 4 Mg/2 Ml Vial) 4 mg IVPUSH Q8H PRN PRN Reason: Nausea and Vomiting Polyethylene Glycol (Polyethylene Glycol 3350 17 Gm Powd.Pack) 17 gm PO DAILY PRN PRN Reason: Constipation Sodium Chloride (0.9 % Sodium Chloride Flush 3 Ml Syringe) 3 ml IVFLUSH QSHIFT [facility] Last Admin: 08/02/24 08:06 Dose: 3 ml Documented By: DAYNA Spironolactone (Spironolactone 25 Mg Tablet) 25 mg PO DAILY [facility]; Protocol Last Admin: 08/02/24 08:04 Dose: 25 mg Documented By: DAYNA Labs 08/02/24 04:59 08/02/24 04:59 Labs: Laboratory Results - last 24 hr 08/01/24 08/01/24 08/02/24 15:14 18:15 04:59 MCV 93.0 92.2 MCH 31.4 31.4 MCHC 33.8 34.0 RDW 16.9 H 16.6 H Plt Count 217 222 MPV 10.7 10.2 Immature Gran % (Auto) 0.3 Neut % (Auto) 79.8 H Lymph % (Auto) 14.5 L [place] % (Auto) 5.2 Eos % (Auto) 0.0 Baso % (Auto) 0.2 Lymph # (Auto) 0.9 L [place] # (Auto) 0.3 Eos # (Auto) 0.0 Baso # (Auto) 0.0 Abs Immat Gran (auto) 0.02 Absolute Neuts (auto) 4.8 Absolute Nucleated RBC 0.000 0.000 Nucleated RBC % (auto) 0.0 0.0 PT 15.3 H INR 1.3 H Anion Gap 19 13 Estim Creat Clear Calc 63.0 65.7 Estimated GFR 50 52 Random Glucose 195 H 129 H Estimat Average Glucose 148 Hemoglobin A1c % 6.8 H Lactic Acid 2.9 H* Lactic Acid F/U @ 2Hr 1.7 Calcium 9.7 9.1 D Magnesium 1.8 Total Bilirubin 2.7 H Direct Bilirubin 1.8 H AST 77 H ALT 67 H Alkaline Phosphatase 446 H Troponin I High Sens 14.9 B-Natriuretic Peptide 4966 H Total Protein 7.7 Albumin 4.1 TSH 1.69 Influenza Type A (PCR) NEGATIVE Influenza Type B (PCR) NEGATIVE RSV RNA Qual (PCR) NEGATIVE SARS-CoV-2 RNA (RT-PCR) NEGATIVE Assessment and Plan (1) Acute on chronic systolic and diastolic heart failure, NYHA class 3: Status: Acute (2) Pulmonary embolism: Status: Acute (3) Dyspnea on exertion: Status: Acute (4) Acute respiratory failure with hypoxia: Status: Acute Plan 59/m with HTN, HLD here with [facility] and found to have PE, heart failure, renal failure and transaminitits Acute hypoxic respiratory failure 2/2 Acute on chronic HFrEF recently started on Metoprolol, torsemide, aldactone and losartan at home recent Echo showed 10-15% EF cardiology eval, diuresis, ARBs IV Lasix Monitor I/O, weight and BMP Pulmonary embolism Lovenox in ED, started on Eliquis negative US of both legs might need further work up for underlying Malignancy (advised to get colonoscopy done as he has family hx of colon CA) will check markers Transaminitis chronic and staple ([place] [facility] [place] check hepatitis profile CT abd negative for any acute findings CKD3 Cr 1.4, stable monitor cr with diuretics Acute lactic acisosis not due to sepsis, resolved HTN resume metoprolol and losartan HLD Hold Lipitor d/t elevated LFTs New diagnosis of DMII HbA1c of 6.8 SSI for now DVT prophylaxis Eliquis Full code the patient will need overnight hospital stay for management of heart failure with IV diuretics, PE pending weaning down O2 supplement Quality Stroke Does the patient have a stroke diagnosis?: No VTE Prior VTE?: No VTE Risk Level:: Medical - moderate - high VTE Device Contraindication: Treatment Not Indicated VTE Drug Contraindication: N/A - Med Ordered
[2024-08-02 16:26] LABS: Glucose, Whole Blood 133 mg/dL (60-115)
[2024-08-02 16:58] LABS: Prostate Specific Antigen 0.16 ng/mL (<0.05-4.0)
[2024-08-02 20:19] LABS: Glucose, Whole Blood 147 mg/dL (60-115)
[2024-08-02] MEDS: Losartan Potassium 25 MG TABLET PO (20:29)
[2024-08-02 21:06] LABS: INTERNATIONAL NORM RATIO 1.5 (0.9-1.1); Prothrombin Time 17.8 SEC (10.9-12.4)
[2024-08-03] VITALS: BP 110/72; PULSE 78; RESP 16; TEMP 37.2; O2SAT 95
[2024-08-03 04:00] VITALS: BP 123/88; PULSE 88; RESP 16; TEMP 36.3; O2SAT 92
[2024-08-03 07:28] VITALS: BP 133/98; PULSE 91; RESP 18; TEMP 36.4; O2SAT 97
[2024-08-03 08:23] LABS: B Type Natriuretic Peptide 2237 pg/mL (<100)
[2024-08-03 08:23] LABS: Glucose, Whole Blood 110 mg/dL (60-115)
[2024-08-03 08:24] LABS: Alanine Aminotransferase 66 U/L (0-40); Albumin Level 3.5 g/dL (3.5-5.0); Alkaline Phosphatase 393 U/L (39-117); Anion Gap 12 (12-20); Aspartate Amino Transferase 65 U/L (5-37); Bilirubin Direct 1.2 mg/dL (0.0-0.5); Bilirubin Total 1.9 mg/dL (0.0-1.0); Blood Urea Nitrogen 22 mg/dL (9-16); Calcium 9.2 mg/dL (8.4-10.2); Carbon Dioxide 30 mmol/L (22-29); Chloride 100 mmol/L (96-108); Creatinine Clr Calc Pharmacy 73.6; Estimated Glomerular Filt Rate 60; Glucose Random 115 mg/dL (60-115); Potassium 3.4 mmol/L (3.3-5.1); Sodium 139 mmol/L (135-145); Total Protein 6.8 g/dL (6.5-8.0)
[2024-08-03] MEDS: Furosemide 40 MG/4 ML VIAL IVPUSH (08:42)
[2024-08-03] MEDS: Aspirin Enteric Coated 81 MG TABLET.DR PO (08:42)
[2024-08-03] MEDS: Apixaban 5 MG TABLET 10 MG PO (08:42)
[2024-08-03] MEDS: Spironolactone 25 MG TABLET PO (08:42)
[2024-08-03] MEDS: Losartan Potassium 25 MG TABLET PO (08:42)
[2024-08-03] MEDS: Metoprolol Succinate ER 25 MG TAB.ER.24H PO (08:42)
[2024-08-03] MEDS: 0.9 % Sodium Chloride Flush 3 ML SYRINGE IVFLUSH (08:47)
--- NOTE | 2024-08-03 08:51 | MHC.CM.PN ---
Addendum entered by Romelia Dominique RN 08/03/24 13:37: Per patient medically cleared for dc home self care, self transport. Original Note: PATIENT CURRENTLY LIVING IN [facility], HAS OWN ROOM @ [address] FUNCTIONALLY INDEPENDENT. DENIES USE OF DME OR SKILLED SERVICES. PCP @ [facility] IN [place] NO HCP. CM PROVIDED EDUCATION AND OFFERED ASSISTANCE. PATIENT DECLINED. DP: GOAL IS HOME SELF CARE. CAR IN [facility] [place] LOT FOR SELF TRANSPORT IF APPROPIATE. CM WILL CONTINUE TO FOLLOW.
[2024-08-03 11:39] VITALS: BP 116/88; PULSE 92; RESP 16; TEMP 36.6; O2SAT 89
[2024-08-03 11:57] LABS: Glucose, Whole Blood 108 mg/dL (60-115)
--- NOTE | 2024-08-03 12:54 | P.DS_ITS ---
DS: Providers Provider Date of Service: 08/03/24 Date of admission: 08/01/24 22:40 Date of discharge: 08/03/24 Primary care physician: Unknown Physician Consults: 08/01/24 22:08 Consult to Cardiology Routine Consulting Provider: [facility] Reason for consultation: Acute heart failure Has provider been notified: Yes DS: Diagnosis Discharge Diagnosis (1) Acute on chronic systolic and diastolic heart failure, NYHA class 3: Status: Acute (2) Pulmonary embolism: Status: Acute (3) Dyspnea on exertion: Status: Acute (4) Acute respiratory failure with hypoxia: Status: Acute DS: Summary Hospital Course Hospital Course: Admission note HPI 59-year-old male with history of hypertension, hyperlipidemi, HFrEF EF 10-15% (last Echo February 2024 at [facility]), CKD3 he was last admitted to [facility] in February for management of heart failure (DC meds--Losartan, Torsemide, metoprolol, Aldactone and dapagliflozin). He presented to the ED with shortness of breath. He has been having shortness of breath for weeks worse with exertion and has had increasing leg edema, PND and othropnea. He has been been prescribed torsemide and aldactone for the lege edema and Prednisone and Azithromycin for cough and bronchitis. ED work up: CXR bronchial wall thickening, cardiomegally. CTA chest: PE, cardiomegally, emphasyma and pulmonary HTN. BNP: 4966, Creatine 1.46 no prior. Flu/RSV/covid negative. ED treatment: Lovenox 90 mg. Hospital course The patient was treated for: # Acute hypoxic respiratory failure 2/2 Acute on chronic HFrEF It seems he has compliance problem with medicaitons. he supposed to be on Metoprolol, torsemide, aldactone and losartan at home since February as he was evaluated at [facility]. recent Echo showed 10-15% EF as reported. cardiology evaluated the patient and recommended to optimize his heart failure medications with BB, diuresis, ARBs and Spironolactone. He was treated with IV Lasix with good response as he was weaned off O2 with O2 sat late 90s. noticed to drop his O2 say while sleeping. will need an outpatient sleep study to be done. # Acute Pulmonary embolism CTA showed small nonocclusive filling defects in tertiary branches of the pulmonary arteries bilaterally upper and lower lobes, suggesting a small emboli could be chronic. Raymundox in ED, started on Eliquis loading dose as negative US of both legs. He might need further work up for underlying Malignancy (advised to get colonoscopy done as he has family hx of colon CA). to be followed by PCP for further work up and refills. cancer markers were checked and negative CEA and PSA. CA19-9 pending. # Transaminitis Seems to be chronic and staple (per record at [facility] [place]). trended down mildly while inpatient. pending hepatitis profile as CT abd negative for any acute findings. to be followed with PCP. # CKD3, Cr 1.4 improved to 1.25 after diuresis. # Acute lactic acisosis, not due to sepsis, resolved Discharge plan Start Eliquis as prescribed: 6 more days of 2 tab two times a day then 1 tab two times a day for total of 6 months To follow with PCP for further work up and refills Continue rest of your home medications You will need a sleep study as outpatient come back to the hospital for any worsening shortness of breath or edema Time Attestation Discharge Coordination Time (in mins): 35 Quality: Safe Use of Opioids Does Pt have an Active Cancer Diagnosis on the Problem List?: No Quality: Stroke Does the patient have a stroke diagnosis?: No Physical Exam Vital Signs: Vital Signs: Last Vital Signs Temp 97.9 F 08/03/24 11:39 Pulse 92 08/03/24 11:39 Resp 16 08/03/24 11:39 BP 116/88 08/03/24 11:39 Pulse Ox 89 L 08/03/24 11:39 O2 Del Method Room Air 08/03/24 11:39 O2 Flow Rate 1 08/03/24 07:28 BMI result Body Mass Index 24.1 Const: Other: Constitutional : Awake, interactive, not in distress Neck : Normal inspection, Supple Cardiovascular : RRR, no JVP, No bilateral lower extremity edema Respiratory : good bilateral air entry, fine basal crackles Gastrointestinal: soft, lax, Normal bowel sounds, Non tender Skin : Warm, Dry Neurological : Alert & oriented x3, No focal deficit DS: Data Data Completed and Pending Labs on day of discharge: Laboratory Results - last 24 hr 08/02/24 08/02/24 08/02/24 16:17 16:22 20:16 Hold Purple Top SEE NOTE PT INR Sodium Potassium Chloride Carbon Dioxide Anion Gap BUN Creatinine Estim Creat Clear Calc Estimated GFR POC Glucose 133 H 147 H Random Glucose Calcium Total Bilirubin Direct Bilirubin AST ALT Alkaline Phosphatase B-Natriuretic Peptide Total Protein Albumin Carcinoembryonic Ag 2.00 Prostate Specific Ag 0.16 08/02/24 08/03/24 08/03/24 20:52 06:37 07:30 Hold Purple Top SEE NOTE SEE NOTE PT 17.8 H INR 1.5 H Sodium 139 Potassium 3.4 Chloride 100 Carbon Dioxide 30 H Anion Gap 12 BUN 22 H Creatinine 1.25 Estim Creat Clear Calc 73.6 Estimated GFR 60 POC Glucose 110 Random Glucose 115 Calcium 9.2 Total Bilirubin 1.9 H Direct Bilirubin 1.2 H AST 65 H ALT 66 H Alkaline Phosphatase 393 H B-Natriuretic Peptide 2237 H Total Protein 6.8 Albumin 3.5 Carcinoembryonic Ag Prostate Specific Ag 08/03/24 11:40 Hold Purple Top PT INR Sodium Potassium Chloride Carbon Dioxide Anion Gap BUN Creatinine Estim Creat Clear Calc Estimated GFR POC Glucose 108 Random Glucose Calcium Total Bilirubin Direct Bilirubin AST ALT Alkaline Phosphatase B-Natriuretic Peptide Total Protein Albumin Carcinoembryonic Ag Prostate Specific Ag Preliminary micro results at discharge 08/02/24 04:59 Blood Culture - Preliminary Blood - Venous No growth after 24 hours. 08/01/24 15:14 Blood Culture - Preliminary Blood - Venous No growth after 24 hours. Imaging Chest x-ray: Radiologist's impression: ITS Impressions Venous Duplex 08/01/24 10:00 IMPRESSION: No evidence of deep venous thrombosis involving the bilateral lower extremities. Electronically signed by: Wayne Bass MD 08/01/2024 11:02 PM EST RP Chest X-Ray 08/01/24 15:30 IMPRESSION: Bronchial wall thickening may be infectious and/or inflammatory in etiology. Cardiomegaly. Electronically signed by: Corina Sam MD 08/01/2024 04:21 PM EST RP Abdomen/Pelvis CT 08/01/24 17:43 IMPRESSION: 1. No small or large bowel obstruction. No bowel wall thickening or inflammatory change. Unremarkable appendix. 2. Trace pelvic free fluid. No organized fluid collection or abscess formation. 3. Cardiomegaly and small pericardial effusion. Fleischner guidelines were followed. Electronically signed by: Augustin Velez MD 08/01/2024 08:43 PM EST RP Chest CTA 08/01/24 18:50 IMPRESSION: 1. Positive PE. Although there are no Large central emboli, there are however small nonocclusive filling defects in tertiary branches of the pulmonary arteries bilaterally upper and lower lobes, suggesting a small emboli could be chronic. These are peripherally located, Subsegmental pulmonary arteries, no CT evidence of cardiac strain septal bowing. 2. Cardiomegaly. 3. Pulmonary emphysema. 4. No suspicious lung mass. 5. Dilated pulmonary arteries, this has been described in association with pulmonary hypertension. (Referring physician staff is being called, by physician staff assistance, to be alerted of the above critical findings and recommendations.)EM 08/01/2024 7:38 PM CLOTH STRETCHER Electronically signed by: Liya Putnam MD 08/01/2024 08:38 PM EST RP Discharge Plan Discharge Anticipated Discharge Date/Time: 08/03/24 12:05 Patient Disposition: Home Health Service Discharge Diagnosis: Acute Pulmonary embolism Heart failure with exacerbation Referrals: Physician,Unknown J [Primary Care Provider] - 1 Week Discharge Medications: New Eliquis DVT-PE Treat 30D Start 5 mg (74 tabs) tablets,dose pack 5 mg PO BID Qty: 74 0RF Continued losartan 50 mg tablet 50 mg PO BID atorvastatin 20 mg tablet 20 mg PO DAILY torsemide 20 mg tablet 20 mg PO DAILY azithromycin 250 mg tablet 250 mg PO DIRECTED Rx Instructions: End date 08/03/24 spironolactone 25 mg tablet 25 mg PO DAILY metoprolol succinate 25 mg tablet extended release 24 hr 25 mg PO DAILY aspirin 81 mg Tablet,Delayed Release (Dr/Ec) 162 mg PO DAILY Discontinued prednisone 20 mg tablet 20 mg PO BID Rx Instructions: End date 08/03/24 Discharge Orders: Discharge Order (Routine); Ordered 08/03/24 Ordered By: Kelvin Keene Diet: Advance to usual diet Activity on Discharge: As tolerated Stand Alone Forms: Patient Portal Discharge page Print Language: Luxembour[place] Care Plan Goals: Start Eliquis as prescribed: 6 more days of 2 tab two times a day then 1 tab two times a day for total of 6 months To follow with PCP for further work up and refills Continue rest of your home medications You will need a sleep study as outpatient come back to the hospital for any worsening shortness of breath or edema Health Concerns: Pulmonary embolism Plan of Treatment: Blood thinner Assessment: as above
[2024-08-03 12:59] VITALS: O2SAT 97
[2024-08-04 04:05] LABS: HBS Num1 15.77 mIU/mL (0-7.99); HBc Num1 0.08 S/CO (0.00-0.79); HBsAGNum1 2.28 S/CO (0.00-0.99); Hepatitis A Antibody IgM 0.14 Index (0-0.79); Hepatitis B Core Antibody Nonreactive (Nonreactive); ~HepC Num1 0.45 S/CO (0.00-0.79); ~Hepatitis A Antibody IgM Nonreactive (Nonreactive); ~Hepatitis B Surface Antibody REACTIVE (Nonreactive); ~Hepatitis C Antibody Nonreactive (Nonreactive)
[2024-08-04 05:27] LABS: HBsAGNum2 Nonreactive; HBsAGNum3 Nonreactive; Hepatitis B Surface Antigen NEGATIVE (Negative)
[2024-08-08 10:34] LABS: Carbohydrate Antigen 19-9 <3 U/mL (<34)
== END 2024-08-03 14:15 | disposition home or self-care (01) | DRG 134 ==
LOC: HO.ED 21:11 → HO.EDOVER 22:46 → HO.IMC 08-02 16:28
PROVIDERS: Physician Assistant; Physician Assistant Medical; Admitting Provider Internal Medicine; Emergency Provider Emergency Medicine; Visit Provider Student in an Organized Health Care Education/Training Program
DX: I26.99 Other pulmonary embolism without acute cor pulmonale (principal); I50.43 Acute on chronic combined systolic (congestive) and diastolic (congestive) heart failure; E87.21 Acute metabolic acidosis; E11.22 Type 2 diabetes mellitus with diabetic chronic kidney disease; I13.0 Hypertensive heart and chronic kidney disease with heart failure and stage 1 through stage 4 chronic kidney disease, or unspecified chronic kidney disease; E78.5 Hyperlipidemia, unspecified; N18.30 Chronic kidney disease, stage 3 unspecified; Z20.822 Contact with and (suspected) exposure to COVID-19; Z80.0 Family history of malignant neoplasm of digestive organs; Z79.82 Long term (current) use of aspirin; Z91.199 Patient's noncompliance with other medical treatment and regimen due to unspecified reason; Z87.891 Personal history of nicotine dependence; Z79.899 Other long term (current) drug therapy
CPT/HCPCS: 0241U; 36415; 71046; 71275; 74177; 80048; 80076; 82378; 82947; 83036; 83605; 83735; 83880; 84153; 84443; 84484; 85025; 85027; 85610; 86301; 86704; 86706; 86709; 86803; 87040; 87340; 93005; 93970; 99285; J1650; J1940; Q9967

== ENCOUNTER → 2024-08-01 22:40 | Outpatient (BNV) | payer OTHER, SELFPAY | PROVIDERS: Admitting Provider Internal Medicine; Emergency Provider Emergency Medicine; Visit Provider Student in an Organized Health Care Education/Training Program | DX: I50.43 Acute on chronic combined systolic (congestive) and diastolic (congestive) heart failure (principal); I26.99 Other pulmonary embolism without acute cor pulmonale; J96.01 Acute respiratory failure with hypoxia | CPT/HCPCS: 99239 ==

== ENCOUNTER → 2024-08-01 22:40 | Outpatient (BNV) | payer OTHER, SELFPAY | PROVIDERS: Admitting Provider Internal Medicine; Emergency Provider Emergency Medicine; Visit Provider Internal Medicine | DX: I50.43 Acute on chronic combined systolic (congestive) and diastolic (congestive) heart failure (principal); I26.99 Other pulmonary embolism without acute cor pulmonale | CPT/HCPCS: 93010; 99223 ==